=== PATIENT | female | born 1980 | race African-American/Black ===

== ENCOUNTER 2020-07-17 15:56 | Emergency (ER) | payer OTHER, MEDICAID ==
[~2020-07-17] VITALS: Ht 157.5 cm; Wt 65.0 kg
[2020-07-17] MEDS ORDERED: ACETAMINOPHEN 325MG TABLET PO ONE (16:30)
[2020-07-17 16:45] VITALS: BP 124/85
== END 2020-07-17 17:02 | disposition home or self-care (01) ==
LOC: ER 15:56
DX: M79.10 Myalgia, unspecified site (principal); F32.9 Major depressive disorder, single episode, unspecified; F41.9 Anxiety disorder, unspecified; F12.10 Cannabis abuse, uncomplicated; R01.1 Cardiac murmur, unspecified; Y04.0XXA Assault by unarmed brawl or fight, initial encounter; Y07.03 Male partner, perpetrator of maltreatment and neglect; Y93.89 Activity, other specified; Y92.89 Other specified places as the place of occurrence of the external cause
CPT/HCPCS: 99282